=== PATIENT | female | born 1960 | race Caucasian/White ===

== ENCOUNTER 2016-11-27 13:37 | Emergency (ER) | payer MEDICARE, OTHER | END 2016-11-27 14:58 | disposition home or self-care (01) | LOC: ER 13:37 | DX: J10.1 Influenza due to other identified influenza virus with other respiratory manifestations (principal); Z79.899 Other long term (current) drug therapy; Z88.8 Allergy status to other drugs, medicaments and biological substances; Z98.890 Other specified postprocedural states | CPT/HCPCS: 87400; 99283 ==